=== PATIENT | female | born 2000 | race Caucasian/White ===

== ENCOUNTER 2025-07-27 18:12 | Emergency (ER) | payer OTHER, SELFPAY ==
[2025-07-27 18:15] VITALS: BP 116/68; PULSE 91; RESP 16; TEMP 36.7; O2SAT 99
--- NOTE | 2025-07-27 18:26 | ED_ITS ---
HPI - Skin/Abscess/Foreign Bdy General Chief complaint: Skin/Abscess/Foreign Body Stated complaint: Bump on back of head Source: patient Mode of arrival: ambulatory Limitations: no limitations History of Present Illness HPI narrative: 25y/o female presented for c/o skin cyst to the base of scalp for 3 days. Says it is getting bigger. Denies significant pain. denies any drainage. Denies any other skin changes. Related Data Home Medications ?Medication ?Instructions ?Recorded ?Confirmed ?Last Taken ?Type desvenlafaxine succinate 100 mg mg PO 07/27/25 Unknow n History tablet,extended release 24 hr escitalopram oxalate 20 mg tablet mg 07/27/25 Unknown History levothyroxine 112 mcg tablet mcg 07/27/25 Unknown His tory Allergies Allergy/AdvReac Type Severity Reaction Status Date / Time No Known Allergies Allergy Verified 07/27/25 18:30 Review of Systems Review of Systems: CONSTITUTIONAL: Denies body aches, fever, chills, or sweats. EYES: Denies visual changes, redness, or discharge. ENT: Denies rhinorrhea, congestion CARDIOVASCULAR: Denies chest pain, palpitations, or edema. RESPIRATORY: Denies cough or dyspnea. GASTROINTESTINAL: Denies abdominal pain, nausea, vomiting, or diarrhea. SKIN: per HPI MUSCULOSKELETAL: Denies back pain, joint pain, or myalgia. NEUROLOGIC: Denies headache, numbness, tingling, or weakness. PMFSH Comments At time of signature, I have reviewed and agree with nursing past medical, surgical, social and family history unless otherwise noted. Please see nursing chart for further information. There is no relevant family history pertinent to the presenting complaint Exam Narrative: GENERAL: Well-appearing HEAD: Normocephalic, atraumatic. occipital skin cyst approx 1.5cm diameter, nontender, mild erythema, no fluctuance or active drainage EYES: conjunctivae clear, and EOMI. ENT: Mucous membranes moist. Oropharynx without edema, erythema or lesions. NECK: Supple. No lymphadenopathy CHEST: Clear to auscultation. HEART: Regular rate and rhythm. SKIN: Warm, dry. NEURO: Alert and oriented x3. Course Course Emergency Course: Patient is aware of diagnosis, understands and agrees to treatment plan. Anticipatory guidance given. Patient agrees to follow-up as directed and is aware of reasons to seek care at the emergency department. Portions of this record may have been created with voice recognition software Level of Care: Express Care Visit Vital Signs Vital signs: Vital Signs Temperature 98.1 F 07/27/25 18:15 Pulse Rate 91 07/27/25 18:15 Respiratory Rate 16 07/27/25 18:15 Blood Pressure 116/68 07/27/25 18:15 Pulse Oximetry 99 07/27/25 18:15 Oxygen Delivery Room Air 07/27/25 18:15 Temperature 98.1 F 07/27/25 18:15 Pulse Rate 91 07/27/25 18:15 Respiratory Rate 16 07/27/25 18:15 Blood Pressure 116/68 07/27/25 18:15 Pulse Oximetry 99 07/27/25 18:15 Oxygen Delivery Room Air 07/27/25 18:15 Reviewed MDM - Skin/Abscess/Foreign Bdy MDM Narrative Medical decision making narrative: Discussed physical exam findings c/w epidermal inclusion cyst to occiput. Advised supportive measures and signs/symptoms to go to the ER. Pt is appropriate for outpt treatment and f/u. Differential Diagnosis Differential diagnosis: Likely abscess of skin or subcutaneous tissue, viral exanthem, dermatophytosis, urticaria, herpes zoster, cellulitis, eczema, insect bites, impetigo and contact dermatitis Discharge Plan Discharge Clinical Impression: Cyst Patient Disposition: Home Condition: Stable Instructions: Antibiotic Form, Epidermal Inclusion Cysts (ED) Additional Instructions: Keep the area clean and dry - cleanse with warm water and mild soap and allow to fully dry. take antibiotic as directed Tylenol as needed for pain warm compresses as needed Watch for worsening symptoms including pain, redness, swelling, streaking, pus/drainage, fever. Go to the ER with any of these symptoms or concerns. Follow up with primary care provider in 1 week as needed. Patient Language: Polish Prescriptions: New cephalexin 500 mg capsule 500 mg PO Q8H 5 Days Qty: 15 0RF cephalexin 500 mg capsule 500 mg PO Q8H 5 Days Qty: 15 0RF No Action levothyroxine 112 mcg tablet escitalopram oxalate 20 mg tablet desvenlafaxine succinate 100 mg tablet extended release 24 hr PO Follow-up/Referrals: PHYSICIAN NOT ON STAFF,NONSTAFF [Primary Care Provider] Time of Disposition: 18:37
== END 2025-07-27 18:40 | disposition home or self-care (01) ==
PROVIDERS: Emergency Provider Nurse Practitioner Family
DX: L72.9 Follicular cyst of the skin and subcutaneous tissue, unspecified (principal); E03.1 Congenital hypothyroidism without goiter; F41.9 Anxiety disorder, unspecified; F32.A Depression, unspecified
CPT/HCPCS: 99203; G0463